=== PATIENT | male | born 1955 | race Caucasian/White ===

== ENCOUNTER 2018-12-29 14:53 | Emergency (ER) | payer BC ==
--- NOTE | 2018-12-29 15:56 | XRAY ---
Exam: Five-view lumbar spine series from 12/29/2018. Comparison: None. Indication: 63-year-old male with back pain, sciatica pain. Findings: AP, lateral, both oblique images, and a coned-down lateral film of the lumbosacral junction were obtained. There are 5 [id number] bearing lumbar-type vertebra. There is very slight convexity of the upper lumbar spine toward the left centered at L2-L3 on the AP image. The sacroiliac joints are remarkable for mild spurring at the inferior margin of the right sacroiliac joint. Advanced osteoarthritic changes are seen throughout the lower thoracolumbar spine. I see no acute lumbar spine fracture, AP traumatic subluxation, or spondylolysis. However, I do believe there is slight generalized compression deformity of the L5 vertebral body which is likely old. In addition, I believe there is slight anterolisthesis of L4 with respect to both L3 and L5 on the lateral images. Again, no spondylolysis is seen. However, there is advanced posterior facet joint arthropathy at both L4-L5 and L5-S1. I believe there is slight narrowing of the L4-L5 and L5-S1 interspace heights. Prominent anterior lateral vertebral endplate spurring is seen throughout the visualized thoracolumbar spine. Some vacuum phenomena is seen at the anterior aspect of the T10-T11, T11-T12, and T11-L1 interspaces. Slight loss of the anterior vertebral body height of both T11 and T12 is likely chronic. Some atherosclerotic vascular calcification is seen within the distal abdominal aorta and proximal iliac arteries. No definite aneurysm is seen at these levels. Abundant scattered colonic stool is seen. I believe there is mild narrowing of the right hip joint spaces compared to the left hip joint space. The psoas muscle margins appear unremarkable. No focal bone destruction is seen. Impression: 1. There is slight generalized compression deformity of the L5 vertebral body as compared to the other lumbar vertebra. This is likely old, as there is extensive degenerative changes and vertebral endplate spurring. 2. I also note minimal narrowing of the anterior vertebral body height of both T11 and T12 which I believe are old. No other compression fracture deformity is seen. 3. There is slight anterolisthesis of L4 with respect to both L3 and L5 on the lateral images. I believe this is degenerative in nature. Marked posterior L4-L5 and L5-S1 facet joint arthropathy is seen. 4. There is slight narrowing of the L4-L5 and L5-S1 interspace heights. Large anterior lateral osteophytes are seen throughout the visualized lower thoracolumbar spine. Some vacuum disc phenomena is seen at T10-T11 through T12-L1 anteriorly. 5. There is mild narrowing of the right hip joint space with respect to the left hip joint space suggesting some mild osteoarthritis within the right hip. The sacroiliac joints are remarkable only for mild spurring at the inferior margin of the right sacroiliac joint.
[2018-12-29] MEDS ORDERED: solu-MEDROL 125 MG IM ONE (16:04)
[2018-12-29] MEDS ORDERED: solu-MEDROL 125 MG ONE (16:08)
--- NOTE | 2018-12-29 16:10 | ERPHSYRPT ---
- History of Present Illness Source: patient Exam Limitations: no limitations Patient Subjective Stated Complaint: pain in right leg from butt to lower leg when he bends over x 2 weeks. Triage Nursing Assessment: alert and oriented with c/o right leg pain when bending down.x 2 weeks. Unsure of injury. limping when walked to room + pedal pulses bilaterally. no pain on palpation to lower. Physician History: Pt is a 63 y/o male with a h/o back pain. Pt states, that he had his back pain for the last two weeks, and it is worse, when he bends down, at this point the pain shoots from the back to the leg on the R. Pt states, he took meds OTC, with no improvement. He never went to see his PCP. Timing/Duration: week(s) Method of Injury: unknown Quality: radiating, sharp Back Pain Location: lumbar spine (R LE) Back Pain Radiation: buttocks, lower legs Severity of Pain-Max: moderate Severity of Pain-Current: moderate Modifying Factors: Improves With: immobilization, pain medication Associated Symptoms: other (No change is sensation of strength in extremities,) Hx Influenza Vaccination/Date Given: No Immunizations Up to Date: Yes - Review of Systems Constitutional: No Fever, No Chills Respiratory: No Cough, No Dyspnea Cardiac: No Chest Pain, No Edema, No Syncope Abdominal/Gastrointestinal: No Abdominal Pain, No Nausea, No Vomiting, No Diarrhea Genitourinary Symptoms: No Dysuria Musculoskeletal: Back Pain Neurological: Other (radiation of pain down the R LE.) - Past Medical History Pertinent Past Medical History: Yes Cardiac History: Hypertension - Past Surgical History Past Surgical History: Yes - Social History Smoking Status: Never smoker Exposure to second hand smoke: No Drug Use: marijuana Patient Lives Alone: No - Nursing Vital Signs Nursing Vital Signs: Initial Vital Signs Temperature 98.6 F 12/29/18 15:08 Pulse Rate 82 12/29/18 15:08 Respiratory Rate 18 12/29/18 15:08 Blood Pressure 181/100 12/29/18 15:08 O2 Sat by Pulse Oximetry 100 12/29/18 15:08 Pain Scale Pain Intensity 7 - Physical Exam General Appearance: no apparent distress, alert Respiratory Exam: normal breath sounds, lungs clear, No respiratory distress Cardiovascular Exam: regular rate/rhythm, normal heart sounds Gastrointestinal Exam: soft, No tenderness, No mass Extremity Exam: normal inspection, other (radiating pain with flexion of the spine.) Neurologic Exam: alert, oriented x 3, cooperative, 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 Pt will have Solu Medrol IM given in the ER. Will order Medrol dose pack and Tramadol for pain. Pt should f/u with PCP, MRIs as needed, and referal to ortho or Neuro. Will see patient in: office Counseled pt/family regarding: need for follow-up - Departure Time of Disposition: 16:14 Departure Disposition: Home Clinical Impression: Spinal stenosis of lumbar region at multiple levels Condition: Stable Critical Care Time: No Referrals: JOHN MCCRACKEN MD [Primary Care Provider] - Additional Instructions: F/u with PCP. Prescriptions: Methylprednisolone Packet [Medrol Dosepack] 4 mg PO UD #1 packet Tramadol HCl 50 mg [Ultram 50 mg] 50 mg PO Q4-6HPRN PRN 5 Days #30 tablet PRN Reason: Pain
[2018-12-29 16:15] VITALS: BP 182/97; PULSE 84
[2018-12-29 16:22] VITALS: O2SAT 100
== END 2018-12-29 16:37 | disposition home or self-care (01) ==
LOC: ED 14:53
DX: M48.061 Spinal stenosis, lumbar region without neurogenic claudication (principal); M79.604 Pain in right leg; I10 Essential (primary) hypertension; F12.90 Cannabis use, unspecified, uncomplicated
CPT/HCPCS: 72110; 96372; 99284; J2930